=== PATIENT | male | born 1995 | race Hispanic/Latino ===

== ENCOUNTER 2019-07-29 03:06 | Emergency (ER) | payer SELFPAY ==
[2019-07-29] MEDS ORDERED: THIAMINE 200 MG/2 ML INJ ONE (03:27)
[2019-07-29] MEDS ORDERED: NA CHLORIDE 0.9% 1,000 ML ONE (03:28)
[2019-07-29 03:40] LABS: Absolute Lymphocytes (CBC) 1.6 K/uL (0.7-4.9); Basophils % 0.7 % (0-1.3); Hematocrit 43.6 % (39.6-49.0); Lymphocytes % 23.3 % (15.3-44.8); MPV 7.8 fL (7.6-11.3); RBC Red Blood Cell Count 4.94 M/uL (4.33-5.43)
[2019-07-29 03:43] LABS: Protime INR 0.99
[2019-07-29 03:53] LABS: ALT/SGPT 25 U/L (12-78); AST/SGOT 16 U/L (15-37); Albumin 3.8 g/dL (3.4-5.0); Alkaline Phosphatase 56 U/L (45-117); BUN Blood Urea Nitrogen 23 mg/dL (7-18); Bicarbonate 24 mmol/L (21-32); Bilirubin Direct 0.1 mg/dL (0-0.2); Bilirubin Total 0.3 mg/dL (0.2-1.0); Glucose Level 123 mg/dL (74-106); Potassium 3.5 mmol/L (3.5-5.1); Protein, Total 7.1 g/dL (6.4-8.2); Sodium Level 140 mmol/L (136-145)
--- NOTE | 2019-07-29 03:55 | EDPHYS ---
Physician Documentation [facility] Name: Kye Adames Age: 24 yrs Sex: Male : 1995 Arrival Date: 07/29/2019 Time: 03:14 Bed 8 Private MD: ED Physician Aleksandar Alonso HPI: 07/29 03:50 This 24 yrs old Male presents to ER via EMS with complaints of etoh sebas intoxication. 03:50 The patient presents to the emergency department after a known overdose, that was sebas accidental. Context: Method: the patient has a confirmed or suspected ingestion, Time: last night, Extent: moderate ingestion, the OD/poisoning occurred at at home, and was witnessed by family, Psychiatric history: none. Associated signs and symptoms: Pertinent positives: nausea, vomiting. Severity of symptoms: At their worst the symptoms were moderate in the emergency department the symptoms have resolved. The patient presents with decreased responsiveness. Onset: The symptoms/episode began/occurred last night. Possible causes: alcohol. Historical: - Allergies: 03:25 No Known Allergies; bb - Home Meds: 03:25 None [Active]; bb - PMHx: 03:25 None; bb - PSHx: 03:25 None; bb - Immunization history:: Adult Immunizations up to date. - Social history:: Smoking status: Patient uses tobacco products, denies chronic smoking, but will smoke occasionally, Patient uses alcohol, occasionally. patient/guardian reports recent binge of alcohol consumption. Patient/guardian denies using street drugs. - Ebola Screening: : No symptoms or risks identified at this time. ROS: 03:50 Constitutional: Negative for fever, chills, and weight loss, Eyes: Negative for injury, sebas pain, redness, and discharge, ENT: Negative for injury, pain, and discharge, Neck: Negative for injury, pain, and swelling, Cardiovascular: Negative for chest pain, palpitations, and edema, Respiratory: Negative for shortness of breath, cough, wheezing, and pleuritic chest pain, Abdomen/GI: Negative for abdominal pain, nausea, vomiting, diarrhea, and constipation, Back: Negative for injury and pain, : Negative for injury, bleeding, discharge, and swelling, MS/Extremity: Negative for injury and deformity, Skin: Negative for injury, rash, and discoloration, Psych: Negative for depression, anxiety, suicide ideation, homicidal ideation, and hallucinations, Allergy/Immunology: Negative for hives, rash, and allergies, Endocrine: Negative for neck swelling, polydipsia, polyuria, polyphagia, and marked weight changes, Hematologic/Lymphatic: Negative for swollen nodes, abnormal bleeding, and unusual bruising. 03:50 Neuro: Positive for weakness. Exam: 03:50 Constitutional: This is a well developed, well nourished patient who is awake, alert, sebas and in no acute distress. Head/Face: Normocephalic, atraumatic. Eyes: Pupils equal round and reactive to light, extra-ocular motions intact. Lids and lashes normal. Conjunctiva and sclera are non-icteric and not injected. Cornea within normal limits. Periorbital areas with no swelling, redness, or edema. ENT: Nares patent. No nasal discharge, no septal abnormalities noted. Tympanic membranes are normal and external auditory canals are clear. Oropharynx with no redness, swelling, or masses, exudates, or evidence of obstruction, uvula midline. Mucous membranes moist. Neck: Trachea midline, no thyromegaly or masses palpated, and no cervical lymphadenopathy. Supple, full range of motion without nuchal rigidity, or vertebral point tenderness. No Meningismus. Chest/axilla: Normal chest wall appearance and motion. Nontender with no deformity. No lesions are appreciated. Cardiovascular: Regular rate and rhythm with a normal S1 and S2. No gallops, murmurs, or rubs. Normal PMI, no JVD. No pulse deficits. Respiratory: Lungs have equal breath sounds bilaterally, clear to auscultation and percussion. No rales, rhonchi or wheezes noted. No increased work of breathing, no retractions or nasal flaring. Abdomen/GI: Soft, non-tender, with normal bowel sounds. No distension or tympany. No guarding or rebound. No evidence of tenderness throughout. Back: No spinal tenderness. No costovertebral tenderness. Full range of motion. Male : Normal genitalia with no discharge or lesions. Skin: Warm, dry with normal turgor. Normal color with no rashes, no lesions, and no evidence of cellulitis. MS/ Extremity: Pulses equal, no cyanosis. Neurovascular intact. Full, normal range of motion. Neuro: Awake and alert, GCS 15, oriented to person, place, time, and situation. Cranial nerves II-XII grossly intact. Motor strength 5/5 in all extremities. Sensory grossly intact. Cerebellar exam normal. Normal gait. Psych: Awake, alert, with orientation to person, place and time. Behavior, mood, and affect are within normal limits. Vital Signs: 03:10 BP 135 / 82; Pulse 110; Resp 16 S; Pulse Ox 98% on R/A; Weight 72.57 kg (R); Height 5 bb ft. 9 in. (175.26 cm) (R); 04:30 BP 128 / 81; Pulse 98; Resp 17; Temp 97.8; Pulse Ox 99% on R/A; ea 03:10 Body Mass Index 23.63 (72.57 kg, 175.26 cm) bb MDM: 03:16 Patient medically screened. sebas 07/29 03:15 Order name: Acetaminophen; Complete Time: 03:56 [facility] 07/29 03:15 Order name: Basic Metabolic Panel; Complete Time: 03:56 [facility] 07/29 03:15 Order name: CBC with Diff; Complete Time: 03:43 [facility] 07/29 03:15 Order name: ETOH Level; Complete Time: 03:56 [facility] 07/29 03:15 Order name: Hepatic Function; Complete Time: 03:56 [facility] 07/29 03:15 Order name: PT-INR; Complete Time: 03:56 [facility] 07/29 03:15 Order name: Ptt, Activated; Complete Time: 03:56 [facility] 07/29 03:15 Order name: Salicylate [facility] 07/29 03:15 Order name: Urine Drug Screen [facility] 07/29 03:15 Order name: EKG; Complete Time: 03:16 [facility] 07/29 03:15 Order name: EKG - Nurse/Tech; Complete Time: 03:31 [facility] 07/29 03:49 Order name: Urine Dipstick--Ancillary (enter results) [facility] 07/29 03:15 Order name: IV Saline Lock; Complete Time: 03:31 [facility] 07/29 03:15 Order name: Labs collected and sent; Complete Time: 03:31 [facility] 07/29 03:15 Order name: Urine Dipstick-Ancillary (obtain specimen); Complete Time: 03:31 [facility] Administered Medications: 03:44 Drug: Thiamine 100 mg Route: IV; Rate: per protocol; Site: right antecubital; ea 04:42 Follow up: Response: No adverse reaction; IV Status: Completed infusion ea 03:44 Drug: NS 0.9% 1000 ml Route: IV; Rate: 1 bolus; Site: right antecubital; ea 04:42 Follow up: Response: No adverse reaction; IV Status: Completed infusion; IV Intake: ea 1000ml Disposition: 07/29/19 03:55 Discharged to Home. Impression: Alcohol abuse with intoxication. - Condition is Stable. - Discharge Instructions: Alcohol Intoxication, Alcohol Intoxication, [id number], Alcohol Abuse and Nutrition. - Prescriptions for Zofran 4 mg Oral Tablet - take 1 tablet by ORAL route every 12 hours As needed; 14 tablet. - Medication Reconciliation Form, Thank You Letter, Antibiotic Education, Prescription Opioid Use form. - Follow up: Private Physician; When: 2 - 3 days; Reason: Recheck today's complaints, Continuance of care, Re-evaluation by your physician. - Problem is new. - Symptoms have improved. Signatures: Dispatcher [employer] EDKS Aleksandar Alonso MD MD cha Ballard, Brenda, RN RN Della Holloway RN RN Orlin Mendoza RN RN jd3 Corrections: (The following items were deleted from the chart) 04:42 03:55 07/29/2019 03:55 Discharged to Home. Impression: Alcohol abuse with intoxication. ea Condition is Stable. Forms are Medication Reconciliation Form, Thank You Letter, Antibiotic Education, Prescription Opioid Use. Follow up: Private Physician; When: 2 - 3 days; Reason: Recheck today's complaints, Continuance of care, Re-evaluation by your physician. Problem is new. Symptoms have improved. sebas
--- NOTE | 2019-07-29 03:55 | ER ---
Nurse's Notes [facility] Name: Kye Adames Age: 24 yrs Sex: Male : 1995 Arrival Date: 07/29/2019 Time: 03:14 Bed 8 Private MD: Diagnosis: Alcohol abuse with intoxication Presentation: 07/29 03:05 Presenting complaint: EMS states: they were toned out for report of pt being bb unresponsive on arrival pt was lying on the floor next to the bed responsive to painful stimuli with emesis. Transition of care: patient was not received from another setting of care. Onset of symptoms was July 29, 2019. Risk Assessment: Do you want to hurt yourself or someone else? Patient reports no desire to harm self or others. Initial Sepsis Screen: Does the patient meet any 2 criteria? No. Patient's initial sepsis screen is negative. Does the patient have a suspected source of infection? No. Patient's initial sepsis screen is negative. Care prior to arrival: Medication(s) given: Normal saline infusion, 1000 mL, IV initiated. 18 GA, in the right antecubital area. 03:05 Method Of Arrival: EMS: [facility] bb 03:05 Acuity: TEA 2 bb 03:27 Note EMS states they were told pt was convulsing on their arrival pt had dystonic type bb movements. Historical: - Allergies: 03:25 No Known Allergies; bb - Home Meds: 03:25 None [Active]; bb - PMHx: 03:25 None; bb - PSHx: 03:25 None; bb - Immunization history:: Adult Immunizations up to date. - Social history:: Smoking status: Patient uses tobacco products, denies chronic smoking, but will smoke occasionally, Patient uses alcohol, occasionally. patient/guardian reports recent binge of alcohol consumption. Patient/guardian denies using street drugs. - Ebola Screening: : No symptoms or risks identified at this time. Screenin:29 Abuse screen: Denies threats or abuse. Nutritional screening: No deficits noted. bb Tuberculosis screening: No symptoms or risk factors identified. Fall Risk None identified. Assessment: 03:31 Reassessment: pt appears to be having some jerky movements in upper torso and arms. bb General: Appears in no apparent distress. uncomfortable, Behavior is calm, cooperative. Pain: Denies pain. Neuro: Level of Consciousness is awake, alert, obeys commands, Oriented to person, place, situation, Speech is normal. Cardiovascular: Heart tones S1 S2 present Capillary refill < 3 seconds Patient's skin is warm and dry. Pulses are all present. Edema is absent. Rhythm is sinus rhythm. Respiratory: Airway is patent Respiratory effort is even, unlabored, Respiratory pattern is regular. GI: No deficits noted. No signs and/or symptoms were reported involving the gastrointestinal system. : No deficits noted. Derm: Skin is pink, warm \T\ dry. Musculoskeletal: Circulation, motion, and sensation intact. 03:56 Reassessment: Patient and/or family updated on plan of care and expected duration. Pain ea level reassessed. Patient is alert, oriented x 3, equal unlabored respirations, skin warm/dry/pink. 04:23 Reassessment: Patient and/or family updated on plan of care and expected duration. Pain ea level reassessed. Patient is alert, oriented x 3, equal unlabored respirations, skin warm/dry/pink. Discharge instructions given patient, verbalized the understanding of instruction. Pt left ED ambulatory accompanied by significant other. No s/s of pain or discomfort noted at this time. Vital Signs: 03:10 BP 135 / 82; Pulse 110; Resp 16 S; Pulse Ox 98% on R/A; Weight 72.57 kg (R); Height 5 bb ft. 9 in. (175.26 cm) (R); 04:30 BP 128 / 81; Pulse 98; Resp 17; Temp 97.8; Pulse Ox 99% on R/A; ea 03:10 Body Mass Index 23.63 (72.57 kg, 175.26 cm) bb ED Course: 03:10 Arm band placed on Patient placed in an exam room, on a stretcher, on monitoring tech, bb on pulse oximetry. EKG completed in triage. Results shown to MD. 03:10 Initial lab(s) drawn, by me, sent to lab. Urine collected: EKG done, by ED staff, bb reviewed by Aleksandar Alonso MD. 03:14 Patient arrived in ED. jd3 03:15 Aleksandar Alonso MD is Attending Physician. sebas 03:19 Della Verma, NATTY is Primary Nurse. ea 03:20 Straight cath inserted, using sterile technique, 16 Fr. Specimen obtained. Patient bb tolerated well. 03:24 Triage completed. bb 03:29 Patient has correct armband on for positive identification. Placed in gown. Bed in low bb position. Call light in reach. Side rails up X2. front desk monitor on. Pulse ox on. NIBP on. Warm blanket given. 04:40 No provider procedures requiring assistance completed. IV discontinued, intact, ea bleeding controlled, No redness/swelling at site. Pressure dressing applied. Administered Medications: 03:44 Drug: Thiamine 100 mg Route: IV; Rate: per protocol; Site: right antecubital; ea 04:42 Follow up: Response: No adverse reaction; IV Status: Completed infusion ea 03:44 Drug: NS 0.9% 1000 ml Route: IV; Rate: 1 bolus; Site: right antecubital; ea 04:42 Follow up: Response: No adverse reaction; IV Status: Completed infusion; IV Intake: ea 1000ml Intake: 04:42 IV: 1000ml; Total: 1000ml. ea Outcome: 03:55 Discharge ordered by . sebas 04:40 Discharged to home ambulatory, with significant other. ea 04:40 Condition: stable 04:40 Discharge instructions given to patient, Instructed on discharge instructions, follow up and referral plans. medication usage, Demonstrated understanding of instructions, follow-up care, medications, Prescriptions given X 1. 04:42 Patient left the ED. ea Signatures: Aleksandar Alonso MD MD cha Ballard, Brenda, RN RN Della Holloway, RN RN Orlin Mendoza RN RN jd3
[2019-07-29 03:56] LABS: Barbiturates NEGATIVE (NEGATIVE); Benzodiazepines NEGATIVE (NEGATIVE); Cocaine NEGATIVE (NEGATIVE); METHAMPHETAM NEGATIVE (NEGATIVE); Methadone NEGATIVE (NEGATIVE); Opiates NEGATIVE (NEGATIVE); Phencyclidine NEGATIVE (NEGATIVE); THC Cannibis POSITIVE (NEGATIVE)
[2019-07-29 04:15] LABS: Urine Blood NEGATIVE (NEG); Urine Glucose NEGATIVE (NEG); Urine Protein NEGATIVE (NEG); Urine Specific Gravity >1.030 (1.005-1.030)
[2019-07-29 04:54] VITALS: BP 128/81; TEMP 97.8; O2SAT 99
--- NOTE | 2019-07-29 14:20 | EKG ---
Test Date: 2019-07-29 Test Time: 03:07:00 Ice Cream Maker: SERVANDO MEASUREMENT RESULTS: Intervals: Rate: 96 CA: 234 QRSD: 88 QT: 346 QTc: 437 [place]: P: 72 CA: 234 QRS: 63 T: 58 INTERPRETIVE STATEMENTS: Sinus rhythm with 1st degree AV block Otherwise normal ECG Compared to ECG 08/26/2013 09:04:23 ST (T wave) deviation no longer present Electronically Signed On 07-29-19 14:19:15 POWERHOUSE TENDER by Julio Sow
== END 2019-07-29 04:42 | disposition home or self-care (01) ==
LOC: ER 03:06
DX: F10.129 Alcohol abuse with intoxication, unspecified (principal); Z72.0 Tobacco use
CPT/HCPCS: 36415; 51702; 80048; 80076; 80307; 80320; 80329; 81003; 85025; 85610; 85730; 93005; 96365; 99284; J3411; J7030